=== PATIENT | female | born 1985 | race Hispanic/Latino ===

== ENCOUNTER 2020-05-15 12:28 | Emergency (ER) | payer SELFPAY ==
[2020-05-15 12:41] VITALS: BP 106/55; PULSE 85; RESP 16; TEMP 36.7; O2SAT 100
--- NOTE | 2020-05-15 12:50 | ED.URI ---
HPI - URI/Sore Throat General Chief Complaint: Upper Respiratory Infection Stated Complaint: Ear/Nose/Throat Time Seen by Provider: 05/15/20 12:44 Source: patient and RN notes reviewed Mode of arrival: ambulatory Limitations: no limitations History of Present Illness HPI Narrative: Patient presents today complaining of a sore throat and cough since last night. She denies any additional symptoms to include congestion, rhinorrhea, ear pain, headache, fever. No shortness of breath. She currently rates her pain 8/10. She took 2 doses of Advil with little relief. Presents today because she needs a note to return to work. MD elicited complaint: cough and sore throat Related Data Home Medications Medication Instructions Recorded Confirmed No Home Medications 05/15/20 05/15/20 Allergies Allergy/AdvReac Type Severity Reaction Status Date / Time No Known Allergies Allergy Unverified 03/26/19 10:24 Review of Systems Review of Systems: Narrative: CONSTITUTIONAL: Denies body aches, fever, chills, or sweats. EYES: Denies visual changes, redness, or discharge. ENT: Denies rhinorrhea, congestion, or otalgia. + Sore throat CARDIOVASCULAR: Denies chest pain, palpitations, or edema. RESPIRATORY: Denies dyspnea.+ Cough GASTROINTESTINAL: Denies abdominal pain, nausea, vomiting, or diarrhea. GENITOURINARY: Denies dysuria or hematuria. SKIN: Denies rash, itching, or wounds. MUSCULOSKELETAL: Denies back pain, joint pain, or myalgia. NEUROLOGIC: Denies headache, numbness, tingling, or weakness. PSYCH: Denies depression or anxiety. PMFSH Social History Social History Gender identity (if verbalized by the patient): Female Comments At time of signature, I have reviewed and agree with nursing past medical, surgical, social and family history unless otherwise noted. Please see nursing chart for further information. There is no relevant family history pertinent to the presenting complaint Exam Narrative: Exam Narrative: GENERAL: Well-appearing, well-nourished, and in no acute distress. HEAD: Normocephalic, atraumatic. EYES: EOMI. No redness or drainage. Conjunctivae normal. ENT: Mucous membranes pink and moist. Nares clear. No rhinorrhea. TMs normal bilaterally. Throat mildly erythematous with postnasal drip. No edema or exudate.. Uvula midline. NECK: Normal AROM. Supple. No lymphadenopathy. CHEST: No respiratory distress. Clear to auscultation. HEART: Regular rate and rhythm. No murmur appreciated. Normal peripheral pulses. EXTREMITIES: Normal range of motion. No edema. SKIN: Warm, dry, no rash. Capillary refill normal. Normal skin turgor. NEURO: No focal deficits. Alert and oriented x3. Gait steady. PSYCH: Normal affect. No signs of depression or anxiety. Course Course Emergency Course: Patient strep test is negative today. To return to work, I believe patient needs to rule out COVID-19. She does not have insurance coverage, so she would like to go to 1 of the free clinics in the area. Will provide her with address to the [facility] in [place]. I will give her a note to return to work, only if her COVID-19 test is negative. Vital Signs Vital signs: Vital Signs Temperature 98.1 F 05/15/20 12:41 Pulse Rate 85 05/15/20 12:41 Respiratory Rate 16 05/15/20 12:41 Blood Pressure 106/55 L 05/15/20 12:41 Pulse Oximetry 100 05/15/20 12:41 Temperature 98.1 F 05/15/20 12:41 Pulse Rate 85 05/15/20 12:41 Respiratory Rate 16 05/15/20 12:41 Blood Pressure 106/55 L 05/15/20 12:41 Pulse Oximetry 100 05/15/20 12:41 Reviewed MDM - URI/Sore Throat Differential Diagnosis Differential diagnosis: Likely upper respiratory infection, otitis media, sinusitis, bronchitis, pharyngitis and other (Strep throat, COVID-19) Lab Data Attestation: I reviewed the patient's lab results. Labs: Strep Screen Presumptive Negative *(Reference Range: Negative)*
== END 2020-05-15 13:20 | disposition home or self-care (01) ==
PROVIDERS: Emergency Provider Nurse Practitioner; PCP Registered Nurse
DX: J02.9 Acute pharyngitis, unspecified (principal); Z20.828 Contact with and (suspected) exposure to other viral communicable diseases
CPT/HCPCS: 87081; 87880; 99213; G0463

== ENCOUNTER 2021-03-08 08:45 | Inpatient (IN) | payer OTHER, SELFPAY ==
[2021-03-08] VITALS (30 sets, daily range): BP systolic 111–153; BP diastolic 49–94; PULSE 61–123; RESP 18; TEMP 36.1–37.1; O2SAT 100; BMI 35.1
--- NOTE | 2021-03-08 09:15 | PM.IMHP ---
H&P: HPI History of Present Illness Date/Time: 03/08/21 09:15 Anca is a 35-year-old 6 para 4014 with last menstrual period was 06/16/2020, EDC is 03/23/2021, presents at 38 and half weeks gestation with spontaneous rupture normal range prior to admission. She has had 2 previous sections and 2 vaginal deliveries with the last vaginal delivery having after the . She also desires permanent sterilization and has signed [employer] Public aid papers for permanent sterilization. Chief Complaint: term in active labor Review of Systems Review of Systems: All systems reviewed & are unremarkable except as noted in HPI and below PMFSH Social History Social History Gender identity (if verbalized by the patient): Female Meds Home Medications and Allergies Home Medications Medication Instructions Recorded Confirmed Type No Home Medications 05/15/20 05/15/20 History Allergies Allergy/AdvReac Type Severity Reaction Status Date / Time No Known Allergies Allergy Unverified 03/26/19 10:24 Exam Const: General: no acute distress Eyes: General: appearance normal, both eyes and all related structures Neck: Neck: supple and no JVD Thyroid: thyroid normal Resp: Effort & Inspection: normal respiratory effort Auscultation: clear to auscultation bilaterally Cardio: Rate: regular rate Rhythm: regular rhythm GI: Inspection: non-distended GI Palp: Yes Soft to palpation, No Tenderness to palpation present (GI) and No Guarding due to palpation present (GI) Auscultation: normal bowel sounds : General: Yes bladder normal to inspection External Female Exam: normal external appearance Speculum Exam - Vagina: normal appearance of the vagina Speculum Exam - Cervix: Cervical os open (3 cm by rn exam.fhts ok) Skin: General skin exam: no rashes or lesions noted Extrem: General: normal to inspection and no edema Psych: Mental Status: mental status grossly normal Affect: normal affect Assessment and Plan Additional Plan impression: Term with spontaneous rupture membranes patient desires permanent sterilization Plan: Vaginal after . IUPC replaced orally. She desires a tubal ligation
--- NOTE | 2021-03-08 09:21 | LDADM ---
This patient, Rosie Aguayo, was admitted to Labor/Delivery/Recovery 106 on 03/08/21 at 08:45. Plans for labor, pain management and were discussed with patient. Patient/family oriented to hospital policies and general routines including ID bracelet, bed and alarms, visiting hours, pain management, procedures, bathroom and other care routines, personal items, smoking policy, room service/diet and guest tray routines, infant security routines, and visiting hours. Patient/Family are encouraged to report perceived risks to care and to ask questions if they do not understand what they are told or what they should do. See OBIX for further documentation.
[2021-03-08 09:37] LABS: Basophils Absolute Auto 0.1 K/mm3 (0.0-0.1); Basophils Percent Auto 0.5 % (0.2-1.2); Eosinophils Absolute Auto 0.1 K/mm3 (0-0.3); Hematocrit 34.8 % (37.0-47.0); Hemoglobin 11.8 g/dL (12.0-15.0); Immature Granulocyte Absolute 0.08 K/mm3 (0.00-0.031); Immature Granulocyte Percent A 0.9 % (0-0.5); Lymphocytes Absolute Auto 1.36 K/mm3 (0.9-3.2); Lymphocytes Percent Auto 14.9 % (18.3-44.2); Mean Corpuscular HGB Conc 33.9 g/dl (32-36); Mean Corpuscular Hemoglobin 29.4 pg (26-34); Mean Corpuscular Volume 86.6 fl (80-100); Mean Platelet Volume 10.7 fl (7.4-10.4); Monocytes Absolute Auto 0.7 K/mm3 (0.1-0.6); Monocytes Percent Auto 7.1 % (2.6-8.5); Neutrophils Absolute Auto 6.9 K/mm3 (1.3-6.7); Neutrophils Percent Auto 75.6 % (45.5-73.1); Platelet Count Result 330 k/mm3 (150-375); Red Blood Count 4.02 M/mm3 (4.2-5.4); Red Cell Distribution Width 13.2 % (11.5-14.5); White Blood Count 9.1 K/mm3 (4.5-10.0)
--- NOTE | 2021-03-08 10:40 | PC.NURSE ---
[employer] translation line was used for both admission questions and process and again for consents. Motor Equipment Lieutenant Liliane #[id number] was used for admission and then Amanda #[id number] was used for consents.
[2021-03-08] MEDS: LACTATED RINGERS 1,000 ML 125 ML IV CONT (10:56)
--- NOTE | 2021-03-08 14:00 | PM.OBPNVD ---
OB - PN: Subj Subjective Date/time seen: 03/08/21 14:00 cx 7 by mehnaz rosenberg OB - PN: Obj Data Labs CBC & Chem 7: 03/08/21 09:26 Labs: Laboratory Results - last 24 hr 03/08/21 03/08/21 09:26 09:27 WBC 9.1 RBC 4.02 L Hgb 11.8 L Hct 34.8 L MCV 86.6 MCH 29.4 MCHC 33.9 RDW 13.2 Plt Count 330 MPV 10.7 H Immature Gran % (Auto) 0.9 H Neut % (Auto) 75.6 H Lymph % (Auto) 14.9 L [place] % (Auto) 7.1 Eos % (Auto) 1.0 Baso % (Auto) 0.5 Lymph # (Auto) 1.36 [place] # (Auto) 0.7 H Eos # (Auto) 0.1 Baso # (Auto) 0.1 Abs Immat Gran (auto) 0.08 H Absolute Neuts (auto) 6.9 H Absolute Nucleated RBC 0.0 Nucleated RBC % 0.0 Blood Type O Positive Antibody Screen Negative OB - PN A/P Time Spent With Patient Time: Total time spent is greater than 50% in coordination of care (as documented) at patient's floor/unit and/or counseling patient:
[2021-03-08] MEDS: OXYTOCIN 30 UNITS/NS 500 ML 30 UNITS/500 ML BAG 999 UNITS IV CONT (15:14)
--- NOTE | 2021-03-08 15:17 | P.PCNOB_ITS ---
OB - Delivery Note Procedure Delivery date: 03/08/21 Intrapartal events: None Induction method: none Delivery monitor: external FHT Route of delivery: Episiotomy description: None Laceration Description: None Specimen: No Quantitative Blood Loss (ml): 58 Anesthesia type: None Disposition: floor [place] Baby Date of : 03/08/21 Time of : 16:11 Weeks of gestation at delivery: 38 gender: Female presentation: vertex position: Right Occiput Anterior Placenta delivery description: Spontaneous cord vessel description: 3 Vessels score one minute: 9 score five minutes: 9
[2021-03-08] MEDS: IBUPROFEN 600 MG TABLET PO ×2 (15:50→22:33)
[2021-03-08] MEDS: BENZOCAINE 20% AER SPR (*SP) 56 GM CAN 1 SPRAY TOPICAL (15:55)
[2021-03-08] MEDS: OXYTOCIN 30 UNITS/NS 500 ML 30 UNITS/500 ML BAG 125 UNITS IV CONT (15:55)
[2021-03-08] MEDS: WITCH HAZEL 40 PADS 1 PAD TOPICAL (15:55)
--- NOTE | 2021-03-08 16:34 | WPDANESEPP ---
Anes - Eval Pre Procedure Procedure: Operation Date: 03/09/21 15:30 Proposed Procedures p Post- Tubal Ligation - Vikram Foss MD Date/Time: 03/08/21 16:34 Pre Op Diagnosis: Desires sterility Patient Data Age: 35 Gender: F Height: 4 ft 8 in Weight: 71 kg Last Vital Signs Temp 97.6 F 03/08/21 15:45 Pulse 94 03/08/21 16:30 Resp 18 03/08/21 09:30 BP 142/84 H 03/08/21 16:30 Allergies Allergy/AdvReac Type Severity Reaction Status Date / Time No Known Allergies Allergy Verified 03/08/21 09:20 Home Medications Medication Instructions Recorded Confirmed Type No Home Medications 05/15/20 03/08/21 History Laboratory Tests 03/08/21 03/08/21 03/08/21 09:26 09:27 09:27 WBC 9.1 K/mm3 K/mm3 (4.5-10.0) RBC 4.02 M/mm3 L M/mm3 (4.2-5.4) Hgb 11.8 g/dL L g/dL (12.0-15.0) Hct 34.8 % L % (37.0-47.0) MCV 86.6 fl fl (80-100) MCH 29.4 pg pg (26-34) MCHC 33.9 g/dl g/dl (32-36) RDW 13.2 % % (11.5-14.5) Plt Count 330 k/mm3 k/mm3 (150-375) MPV 10.7 fl H fl (7.4-10.4) Immature Gran % (Auto) 0.9 % H % (0-0.5) Neut % (Auto) 75.6 % H % (45.5-73.1) Lymph % (Auto) 14.9 % L % (18.3-44.2) [place] % (Auto) 7.1 % % (2.6-8.5) Eos % (Auto) 1.0 % % (0-4.4) Baso % (Auto) 0.5 % % (0.2-1.2) Lymph # (Auto) 1.36 K/mm3 K/mm3 (0.9-3.2) [place] # (Auto) 0.7 K/mm3 H K/mm3 (0.1-0.6) Eos # (Auto) 0.1 K/mm3 K/mm3 (0-0.3) Baso # (Auto) 0.1 K/mm3 K/mm3 (0.0-0.1) Abs Immat Gran (auto) 0.08 K/mm3 H K/mm3 (0.00-0.031) Absolute Neuts (auto) 6.9 K/mm3 H K/mm3 (1.3-6.7) Absolute Nucleated RBC 0.0 K/mm3 K/mm3 (0.0-0.012) Nucleated RBC % 0.0 % % (0.0-0.2) RPR Pending Blood Type O Positive Antibody Screen Negative Patient hx anesthesia problems: none Family hx anesthesia problems: none PMFSH Past Medical History Medical History Obese body habitus (vaginal after ) Family History Family History Other No pertinent family history in first degree relatives Social History Social History Smoking status: Never smoker Substance use: never Gender identity (if verbalized by the patient): Female Spiritual care concerns: Yes (Hospital emc storage architect to come see) Exam Day of Procedure 03/08/21 16:34 Patient weight: obese Neurological: alert and oriented
[2021-03-08] MEDS: ACETAMINOPHEN 325 MG TABLET 650 MG PO (19:17)
[2021-03-09] VITALS (13 sets, daily range): BP systolic 94–140; BP diastolic 58–83; PULSE 63–78; RESP 14–20; TEMP 36.2–36.9; O2SAT 99–100
[2021-03-09] MEDS: ACETAMINOPHEN 325 MG TABLET 650 MG PO ×4 (04:29→22:35)
[2021-03-09 04:38] LABS: Hematocrit 30.3 % (37.0-47.0); Hemoglobin 10.1 g/dL (12.0-15.0)
--- NOTE | 2021-03-09 06:47 | WPDHPUPDATE1 ---
History and Physical Update Update Date/Time: 03/09/21 06:47 History and Physical has been reviewed, including an updated exam of the patient. There are NO changes in the patient's condition. Risks, benefits, and alternatives have been discussed and questions answered. Patient agrees to proceed with procedure.
--- NOTE | 2021-03-09 06:52 | P.PNOB_ITS ---
OB - PN: Subj Subjective Date/time seen: 03/09/21 06:52 Interval history: tubal today Patient comments: no complaints and pain well controlled OB - PN: Obj Data Labs CBC & Chem 7: 03/09/21 04:18 Labs: Laboratory Results - last 24 hr 03/08/21 03/08/21 03/09/21 09:26 09:27 04:18 WBC 9.1 RBC 4.02 L Hgb 11.8 L 10.1 L Hct 34.8 L 30.3 L MCV 86.6 MCH 29.4 MCHC 33.9 RDW 13.2 Plt Count 330 MPV 10.7 H Immature Gran % (Auto) 0.9 H Neut % (Auto) 75.6 H Lymph % (Auto) 14.9 L [place] % (Auto) 7.1 Eos % (Auto) 1.0 Baso % (Auto) 0.5 Lymph # (Auto) 1.36 [place] # (Auto) 0.7 H Eos # (Auto) 0.1 Baso # (Auto) 0.1 Abs Immat Gran (auto) 0.08 H Absolute Neuts (auto) 6.9 H Absolute Nucleated RBC 0.0 Nucleated RBC % 0.0 Blood Type O Positive Antibody Screen Negative OB - PN A/P Plan day: 1 Plan: routine care Comments: btl today Time Spent With Patient Time: Total time spent is greater than 50% in coordination of care (as documented) at patient's floor/unit and/or counseling patient: Time with patient: less than 15 minutes Review of Systems Review of Systems: All systems reviewed & are unremarkable except as noted in HPI and below
--- NOTE | 2021-03-09 08:00 | PC.NURSE ---
PT speaks no haitian. Using telephone with her daughter who speaks fluent haitian. Introductions made and plan of care discussed per post , pain management, bottle breast feeding, daily care activities, and BTL this afternoon. NPO, and preop questions. Pt verbalized understanding of such care.
[2021-03-09 08:39] LABS: Rapid Plasma Reagin Non-Reactive (NonReactive)
[2021-03-09] MEDS: IBUPROFEN 600 MG TABLET PO ×3 (12:50→22:35)
--- NOTE | 2021-03-09 14:05 | PC.NURSE ---
PT taken to OR via stretcher for PP BTL Pt awake and alert. preop nurse speaks fluent uzbek with pt and her spouse. Spouse, Francois is accompanying pt to preop. baby to nursery.
[2021-03-09] MEDS: LACTATED RINGERS 1,000 ML 30 ML IV CONT (14:20)
--- NOTE | 2021-03-09 14:44 | SUR.PREOP ---
1410-CORNELIA THOMASON SPEAKS FLUENT NEPALESE AND PT AND COMFORTABLE WITH HER TRANSLATING FOR PREOP STAFF VS USING STRATUS DEVICE.
--- NOTE | 2021-03-09 14:53 | P.PNAN_ITS ---
Anes - Initial Pre Proc Eval Procedure: Operation Date: 03/09/21 15:30 Proposed Procedures p Post- Tubal Ligation - Vikram Foss MD Date/Time: 03/09/21 14:53 Surgeon: Vikram Foss MD Pre Op Diagnosis: Desires sterility Patient Data Age: 35 Gender: F Height: 4 ft 8 in Weight: 71 kg Last Vital Signs Temp 36.9 C 03/09/21 14:10 Pulse 74 03/09/21 14:10 Resp 16 03/09/21 14:10 BP 123/71 03/09/21 14:10 Pulse Ox 100 03/09/21 14:10 Allergies Allergy/AdvReac Type Severity Reaction Status Date / Time No Known Allergies Allergy Verified 03/08/21 09:20 Home Medications Medication Instructions Recorded Confirmed Type No Home Medications 05/15/20 03/08/21 History hydrocodone-acetaminophen 1 tablet PO Q6H PRN #20 tablet 03/09/21 Rx Laboratory Tests 03/08/21 03/09/21 09:27 04:18 Hgb 10.1 g/dL L g/dL (12.0-15.0) Hct 30.3 % L % (37.0-47.0) RPR Non-reactive (NonReactive) Patient hx anesthesia problems: none Family hx anesthesia problems: none PMFSH Past Medical History Medical History Obese body habitus (vaginal after ) Family History Family History Other No pertinent family history in first degree relatives Social History Social History Smoking status: Never smoker Substance use: never Gender identity (if verbalized by the patient): Female Spiritual care concerns: Yes (Hospital flight information expediter to come see) Anes - Eval Final PreProcedure Day of Procedure 03/09/21 14:53 Patient weight: obese Heart: regular rate and rhythm Lungs: clear to auscultation Airway: Mallampati scale class II Neurological: alert and oriented Last oral intake: >/= 8 hours ASA classification: II Emergent: no Anesthetic plan: proceed Anesthesia type and monitoring: general ETT and standard monitoring Informed Consent: The patient's anesthetic plan and its attendant risks and benefits were discussed with the patient/family/POA. Questions were solicited and answers provided to the satisfaction of the patient/family/POA.
[2021-03-09] MEDS: LIDOCAINE HCL 1% LOCAL INJ 20 ML VIAL 50 ML INFILTRATE (15:33)
--- NOTE | 2021-03-09 15:57 | P.OP_ITS ---
Procedure Note - Detailed Date of procedure: 03/09/21 Pre-op diagnosis: Desires sterility Surgeon: Vikram Foss MD Postop diagnosis: day 1 in a patient who desires permanent sterilization Procedure: bilateral tubal ligation via modified Spencer method Anesthesia: General endotracheal EBL: 5cc Findings: uterus/normal-appearing ovaries and tubes Complications: None Description of procedure: The patient was prepped and draped in the normal sterile fashion placed in the dorsal lithotomy position. Under excellent general trach anesthesia an infraumbilical incision was made after 8cc of% xylocaine anesthesia was admitted placed. This was progressively layers to the fascia. The fascia was incised upward outward fashion bilaterally. The underlying muscles were and the parietal peritoneum elevated by sharp dissection. The left fallopian tube was found grasped at its midportion traverse to its fimbriated end read traverse to the midportion and a good knuckle of tube formed free tie with 0 Koul chromic. The peritoneum between was pierced and the distal and proximal portions were both free tied with 0 chromic. The portion between incised passed off the table and marked as portion of left fallopian tube. Hemostasis was assured in this was returned to the abdomen. In like fashion the right fallopian tube was grasped with the at the midportion. This was traversed to its fimbriated end to assure this was the tube and read traversed to the midportion. A good knuckle of free tie on the midportion. Peritoneum between was pierced and the distal and proximal portions were free tied with 0 chromic. The knuckle between was incised and passed off as portion of right fallopian tube. Hemostasis was assured. The tube returned to the abdomen. The fat the fascia was then closed with continuous running 0 Vicryl from lateral edge to lateral edge after assuring all sponge counts were correct. The skin closed with 4 Monocryl and glue. The patient was awakened. All sponge, needle, instrument counts were correct. There were no immediate complications
[2021-03-09] MEDS: fentaNYL CITRATE INJ (*CRX) 100 MCG/2 ML VIAL 25 MCG IV PUSH ×4 (16:13→16:40)
--- NOTE | 2021-03-09 17:19 | PC.NURSE ---
PT returned to floor via stretcher and moved to bed without difficulty. PT talking to daughter on phone to interpret any questions regarding pain management and BTL . Francois at bedside. PT states minimal pain and extremely hunger. assisted pt with ordering food in icelandic and then called to dietary. PT verbalized understanding of such care.
[2021-03-09] MEDS: DOCUSATE SODIUM 100 MG CAPSULE PO (17:43)
[2021-03-09] MEDS: LANOLIN (LANSINOH) 7.5 GM CREAM 1 APPLIC TOPICAL (17:46)
--- NOTE | 2021-03-10 08:07 | PM.OBDSVD ---
DS: Admitting Diagnosis Admitting Diagnosis Admitting Diagnosis: intrauterine at term OB - DS: Summary OB Procedures : None OB Procedures Intrapartum: Spontaneous Vag Delivery OB Procedures: : P.P. tubal ligation Peripartum Data Procedures: Procedures Operation Date: 03/09/21 15:30 Actual Procedures Side Surgeon p Post- Tubal Ligation Bilateral Vikram Foss MD Status at Discharge Functional status at discharge: independent ambulation Overall status at discharge: patient is back to baseline Time Spent with Patient Time attestation: Total time spent providing and/or coordinating discharge services: Time spent: Less than 30 minutes Exam Const: General: comfortable and no acute distress Resp: Effort & Inspection: normal respiratory effort Auscultation: clear to auscultation bilaterally Cardio: Rate: regular rate GI: GI Palp: Yes Soft to palpation Auscultation: normal bowel sounds Other: Fundus firm below umbilicus Psych: Appearance: grossly normal Mental Status: mental status grossly normal Affect: normal affect DS: Data Data Completed and Pending Pending studies at discharge: Pending at discharge 03/09/21 15:36 Surgical [PTH] Routine Labs on day of discharge: Labs from last 24 hours 03/08/21 09:27 RPR Non-reactive Discharge Plan Discharge Attending physician on discharge: Vikram Foss Discharging Clinician: Vikram Foss Patient Disposition: Home, Self-Care Activity: may shower, no straining and pelvic rest Diet: heart healthy Wound Care Instructions: follow printed instructions Patient Instructions: Antibiotic Form Stand Alone Forms: General Discharge Information Follow-up/Referrals: Vikram Foss MD [Physician] - Discharge Medications: New hydrocodone-acetaminophen 5-300 mg tablet 1 tablet PO Q6H PRN (Reason: pain) Qty: 20 RF: 0 acetaminophen [Mapap (acetaminophen)] 325 mg Tablet 650 mg PO Q6H PRN (Reason: Mild Pain (1-3) Or Headache) Qty: 30 RF: 0 ibuprofen 600 mg Tablet 600 mg PO Q6H PRN (Reason: Cramping) Qty: 30 RF: 0 No Action No Home Medications RF: 0 Date of admission: 03/08/21 08:45 Primary Care Provider: SabinaJennifer Admitting Provider: Vikram Foss Attending physician on admission: Vikram Foss Condition: Stable
[2021-03-10] MEDS: MULTIVIT/MIN/PREN/FOL AC/IRON TABLET 1 TAB PO (08:51)
[2021-03-10] MEDS: DOCUSATE SODIUM 100 MG CAPSULE PO (08:51)
[2021-03-10] MEDS: ACETAMINOPHEN 325 MG TABLET 650 MG PO (08:52)
[2021-03-10] MEDS: IBUPROFEN 600 MG TABLET PO (08:52)
[2021-03-10 09:00] VITALS: BP 128/77; PULSE 73; RESP 18; TEMP 36.6; O2SAT 100
--- NOTE | 2021-03-10 12:16 | PC.NURSE ---
Discharge instructions given to mother and all questions answered. Patient declined video office machine installer to be used due to specific dialect used. Patient desired family member to translate via phone call. All instructions and education provided, patient verbalized understanding. Patient understands to return tomorrow for bilirubin check and to also return Friday for mother/baby follow-up appointment.
[2021-03-12 08:44] VITALS: BP 126/87; PULSE 87; RESP 20; TEMP 36.8; O2SAT 100
== END 2021-03-10 12:02 | disposition home or self-care (01) | DRG 541 ==
LOC: ANHLDR 16:35 → ANHOB2 03-10 08:07 → ANHLDR 03-13 09:54 → ANHOB2 03-13 09:54
PROVIDERS: Admitting Provider Obstetrics & Gynecology; PCP Registered Nurse; Visit Provider Student in an Organized Health Care Education/Training Program
PROC: 0UB70ZZ Excision of Bilateral Fallopian Tubes, Open Approach (ICD-10-PCS; CPT 58605; principal; 2021-03-09 15:30)
DX: O34.211 Maternal care for low transverse scar from previous cesarean delivery (principal); Z30.2 Encounter for sterilization; Z3A.37 37 weeks gestation of pregnancy; Z37.0 Single live birth
CPT/HCPCS: 36415; 85014; 85018; 85025; 86592; 86850; 86900; 86901; 88302; A9270; J0330; J1100; J2250; J2405; J2590; J2704; J3010; J7120

== ENCOUNTER 2023-11-28 16:09 | Emergency (ER) | payer OTHER, SELFPAY ==
[2023-11-28 16:31] VITALS: BP 124/78; PULSE 83; RESP 16; TEMP 36.9; O2SAT 99
--- NOTE | 2023-11-28 16:50 | ED.DIZZY ---
HPI - Dizziness General Chief Complaint: Dizziness Stated Complaint: dizzy today Source: patient and RN notes reviewed Mode of arrival: ambulatory Limitations: no limitations History of Present Illness HPI Narrative: 38-year-old female presented for complaint of dizziness today. She endorses blurred vision yesterday which has resolved. She states the dizziness is worse when she bends forward. She denies any associated headache, chest pain, palpitations, shortness of breath, nausea, vomiting or sweating. She is not taking any medicine for symptoms. States her employer wants a covid test. Related Data Allergies Allergy/AdvReac Type Severity Reaction Status Date / Time No Known Allergies Allergy Verified 11/28/23 16:48 Review of Systems Review of Systems: CONSTITUTIONAL: Denies body aches, fever, chills, or sweats. EYES: Denies visual changes, redness, or discharge. ENT: Denies rhinorrhea, congestion, sore throat, or otalgia. CARDIOVASCULAR: Denies chest pain, palpitations, or edema. RESPIRATORY: Denies cough or dyspnea. GASTROINTESTINAL: Denies abdominal pain, nausea, vomiting, or diarrhea. GENITOURINARY: Denies dysuria or hematuria. SKIN: Denies rash, itching, or wounds. MUSCULOSKELETAL: Denies back pain, joint pain, or myalgia. NEUROLOGIC: denies numbness, tingling, or weakness, reports dizziness All systems reviewed & are unremarkable except as noted in HPI and below PMFSH Past Medical History Medical History (Updated 11/28/23 @ 16:56 by Abena Le APRN) No pertinent past medical history Comments At time of signature, I have reviewed and agree with nursing past medical, surgical, social and family history unless otherwise noted. Please see nursing chart for further information. There is no relevant family history pertinent to the presenting complaint Exam Narrative: GENERAL: Well-appearing, well-nourished HEAD: Normocephalic, atraumatic. EYES: PERRLA, EOMI. Dizziness reported with EOM which resolved in a few seconds. ENT: Mucous membranes pink and moist. No rhinorrhea. TMs normal bilaterally. NECK: Normal AROM. CHEST: Clear to auscultation. HEART: Regular rate and rhythm. ABDOMEN: Soft, nontender, nondistended, normal active bowel sounds. SKIN: Warm, dry, no rash. Capillary refill normal. Normal skin turgor. NEURO:No focal deficits. Alert and oriented x3. Finger to nose intact bilaterally. EOMs intact without nystagmus. No facial droop/asymmetry noted bilaterally. Grimace intact. Intact sensation in face. Hearing intact bilaterally. Shoulder shrug intact. Ambulatory exam with a normal based, steady gait. PSYCH: Normal affect. Course Course Emergency Course: Patient is aware of diagnosis, understands and agrees to treatment plan. Anticipatory guidance given. Patient agrees to follow-up as directed and is aware of reasons to seek care at the emergency department. Portions of this record may have been created with voice recognition software Level of Care: Express Care Visit Vital Signs Vital signs: Vital Signs Temperature 98.4 F 11/28/23 16:31 Pulse Rate 83 11/28/23 16:31 Respiratory Rate 16 11/28/23 16:31 Blood Pressure 124/78 11/28/23 16:31 Pulse Oximetry 99 11/28/23 16:31 Oxygen Delivery Room Air 11/28/23 16:31 Temperature 98.4 F 11/28/23 16:31 Pulse Rate 83 11/28/23 16:31 Respiratory Rate 16 11/28/23 16:31 Blood Pressure 124/78 11/28/23 16:31 Pulse Oximetry 99 11/28/23 16:31 Oxygen Delivery Room Air 11/28/23 16:31 MDM - Dizziness MDM Narrative Medical decision making narrative: results of neg flu and COVID test reviewed with patient. Discussed physical exam findings. Advised supportive measures and signs/symptoms to go to the ER. Pt is appropriate for outpt treatment and f/u. Differential Diagnosis Differential diagnosis: Likely benign paroxysmal positional vertigo, orthostatic hypotension, vertebral basilar insuffic
== END 2023-11-28 17:40 | disposition home or self-care (01) ==
PROVIDERS: Emergency Provider Nurse Practitioner Family; PCP Registered Nurse
DX: H81.10 Benign paroxysmal vertigo, unspecified ear (principal); Z20.822 Contact with and (suspected) exposure to COVID-19
CPT/HCPCS: 87426; 87804; 99213; C9803; G0463

== ENCOUNTER 2024-01-13 12:57 | Outpatient (CLI) | payer OTHER, SELFPAY ==
--- NOTE | 2024-01-13 13:30 | NEURO_ITS ---
Nerve Conduction Studies Anti Sensory Summary Table Stim Site NR Peak (ms) P-T Amp (?V) Site1 Site2 Delta-P (ms) Dist (cm) James (m/s) Right Median Anti Sensory (2-3nd Digit) Wrist 3.0 75.8 Wrist 2-3nd Digit 3.0 14.0 47 Wrist 3.1 52.0 Wrist 2-3nd Digit 3.0 14.0 47 Right Radial Anti Sensory (Base 1st Digit) Wrist 1.7 38.9 Wrist Base 1st Digit 1.7 0.0 Right Ulnar Anti Sensory (5th Digit) Wrist 2.0 63.2 Wrist 5th Digit 2.0 14.0 70 Motor Summary Table Stim Site NR Onset (ms) O-P Amp (mV) Site1 Site2 Delta-0 (ms) Dist (cm) James (m/s) Right Median Motor (Abd Poll Brev) Wrist 3.7 5.3 Elbow Wrist 3.6 24.0 67 Elbow 7.3 5.2 Right Ulnar Motor (Abd Dig Minimi) Wrist 2.4 7.1 A Elbow Wrist 4.0 25.0 63 A Elbow 6.4 6.4 F Wave Studies NR F-Lat (ms) L-R F-Lat (ms) Right Median (Mrkrs) (Abd Poll Brev) 24.55 Right Ulnar (Mrkrs) (Abd Dig Min) 23.52 EMG Side Muscle Nerve Root Ins Act Fibs Amp Dur Recrt Comment Right 1stDorInt Ulnar C8-T1 Nml Nml Nml Nml Nml Right Ext Indicis Radial (Post Int) C7-8 Nml Nml Nml Nml Nml Right Ext Digitorum Radial (Post Int) C7-8 Nml Nml Nml Nml Nml Right BrachioRad Radial C5-6 Nml Nml Nml Nml Nml Right PronatorTeres Median C6-7 Nml Nml Nml Nml Nml Right Abd Poll Brev Median C8-T1 Nml Nml Nml Nml Nml MTDD
--- NOTE | 2024-01-13 14:30 | NEURO_ITS ---
Impression: # Complains of right hand numbness. # Evolving right Carpal Tunnel Syndrome. # No ulnar neuropathy. # Normal needle/EMG exam. Nerve Conduction Studies Anti Sensory Summary Table Stim Site NR Peak (ms) P-T Amp (?V) Site1 Site2 Delta-P (ms) Dist (cm) James (m/s) Right Median Anti Sensory (2-3nd Digit) Wrist 3.0 75.8 Wrist 2-3nd Digit 3.0 14.0 47 Wrist 3.1 52.0 Wrist 2-3nd Digit 3.0 14.0 47 Right Radial Anti Sensory (Base 1st Digit) Wrist 1.7 38.9 Wrist Base 1st Digit 1.7 0.0 Right Ulnar Anti Sensory (5th Digit) Wrist 2.0 63.2 Wrist 5th Digit 2.0 14.0 70 Motor Summary Table Stim Site NR Onset (ms) O-P Amp (mV) Site1 Site2 Delta-0 (ms) Dist (cm) James (m/s) Right Median Motor (Abd Poll Brev) Wrist 3.7 5.3 Elbow Wrist 3.6 24.0 67 Elbow 7.3 5.2 Right Ulnar Motor (Abd Dig Minimi) Wrist 2.4 7.1 A Elbow Wrist 4.0 25.0 63 A Elbow 6.4 6.4 F Wave Studies NR F-Lat (ms) L-R F-Lat (ms) Right Median (Mrkrs) (Abd Poll Brev) 24.55 Right Ulnar (Mrkrs) (Abd Dig Min) 23.52 EMG Side Muscle Nerve Root Ins Act Fibs Amp Dur Recrt Comment Right 1stDorInt Ulnar C8-T1 Nml Nml Nml Nml Nml Right Ext Indicis Radial (Post Int) C7-8 Nml Nml Nml Nml Nml Right Ext Digitorum Radial (Post Int) C7-8 Nml Nml Nml Nml Nml Right BrachioRad Radial C5-6 Nml Nml Nml Nml Nml Right PronatorTeres Median C6-7 Nml Nml Nml Nml Nml Right Abd Poll Brev Median C8-T1 Nml Nml Nml Nml Nml MTDD
== END 2024-01-13 12:58 | disposition home or self-care (01) ==
LOC: ANHNEURO 12:58
PROVIDERS: PCP Registered Nurse; Visit Provider Registered Nurse
DX: R20.2 Paresthesia of skin (principal); G56.03 Carpal tunnel syndrome, bilateral upper limbs
CPT/HCPCS: 95886; 95909